=== PATIENT | male | born 1950 | race Asian ===

== ENCOUNTER 2020-08-17 07:45 | Outpatient (REF) | payer BC, SELFPAY ==
[2020-08-17 08:24] LABS: MANUAL DIFF FLAG NO
[2020-08-17 08:37] LABS: Estimated Average Glucose 237 mg/dL; Hemoglobin A1c % 9.9 %
[2020-08-17 08:51] LABS: Alanine Aminotransferase 31 U/L (0-40); Albumin Level 4.3 g/dL (3.5-5.0); Alkaline Phosphatase 76 U/L (39-117); Anion Gap 14 (12-20); Aspartate Amino Transferase 20 U/L (5-37); Bilirubin Total 0.7 mg/dL (0.0-1.0); Blood Urea Nitrogen 17 mg/dL (9-16); Calcium 8.9 mg/dL (8.4-10.2); Carbon Dioxide 25 mmol/L (22-29); Chloride 103 mmol/L (96-108); Cholesterol 116 mg/dL; Estimated Glomerular Filt Rate > 60; Glucose Fasting 225 mg/dL (60-99); HDL Cholesterol 37 mg/dL; LDL Cholesterol Calculated 67 mg/dl; Potassium 4.5 mmol/L (3.3-5.1); Sodium 137 mmol/L (135-145); Total Protein 7.4 g/dL (6.5-8.0); Triglycerides 62 mg/dL
[2020-08-17 09:01] LABS: Microalbum/Creatinine Ratio Ur 36.9 ug/mg cr
[2020-08-17 09:02] LABS: Basophils Percent Auto 0.4 % (0-2); Eosinophils Absolute Auto 0.2 X10*3/uL (0.0-0.4); Eosinophils Percent Auto 2.6 % (0-4); Hemoglobin 13.3 g/dl (14.0-18.0); Imm Gran Abs Auto 0.02 X10*3/uL (0.00-0.03); Imm Gran Pct Auto 0.3 % (0.0-0.4); Lymphocytes Percent Auto 29.1 % (20-40); Mean Corpuscular HGB Conc 31.7 g/dl (31.0-36.0); Mean Corpuscular Hemoglobin 26.9 pg (27.0-33.0); Mean Corpuscular Volume 84.8 fL (80-98); Mean Platelet Volume 10.3 fL (9.4-12.4); Monocytes Absolute Auto 0.8 X10*3/uL (0.1-1.2); Monocytes Percent Auto 11.3 % (2-11); Neutrophils Absolute Auto 3.9 X10*3/uL (2.0-8.3); Neutrophils Percent Auto 56.3 % (45-73); Platelet Count 240 X10*3/uL (160-400); Red Blood Count 4.95 X10*6/uL (4.60-5.80); Red Cell Distribution Width 13.2 % (11.0-16.0); White Blood Count 6.9 X10*3/uL (4.8-10.8)
== END 2020-08-17 07:46 | disposition home or self-care (01) ==
LOC: HO.LAB 07:45
PROVIDERS: PCP Internal Medicine; Visit Provider Internal Medicine
DX: Z00.00 Encounter for general adult medical examination without abnormal findings (principal); E11.9 Type 2 diabetes mellitus without complications
CPT/HCPCS: 36415; 80053; 80061; 82043; 83036; 85025

== ENCOUNTER → 2020-10-21 12:51 | Outpatient (BNVA) | payer BC, SELFPAY | PROVIDERS: PCP Internal Medicine; Visit Provider Nurse Practitioner Gerontology | DX: E11.65 Type 2 diabetes mellitus with hyperglycemia (principal); E11.42 Type 2 diabetes mellitus with diabetic polyneuropathy; E78.00 Pure hypercholesterolemia, unspecified | CPT/HCPCS: 82947 ==

== ENCOUNTER → 2021-02-26 13:16 | Outpatient (BNVA) | payer BC, SELFPAY | PROVIDERS: PCP Internal Medicine; Visit Provider Nurse Practitioner Gerontology | DX: E11.42 Type 2 diabetes mellitus with diabetic polyneuropathy (principal); E78.00 Pure hypercholesterolemia, unspecified | CPT/HCPCS: 82947; 83036 ==

== ENCOUNTER → 2021-03-26 12:24 | Outpatient (BNVA) | payer BC, SELFPAY | PROVIDERS: PCP Internal Medicine; Visit Provider Dietitian, Registered | DX: E11.42 Type 2 diabetes mellitus with diabetic polyneuropathy (principal) | CPT/HCPCS: 97802 ==

== ENCOUNTER 2021-06-07 07:23 | Outpatient (REF) | payer BC, SELFPAY ==
[2021-06-07 08:11] LABS: Estimated Average Glucose 146 mg/dL; Hemoglobin A1c % 6.7 %
[2021-06-07 08:27] LABS: Alanine Aminotransferase 29 U/L (0-40); Albumin Level 4.5 g/dL (3.5-5.0); Alkaline Phosphatase 64 U/L (39-117); Anion Gap 15 (12-20); Aspartate Amino Transferase 20 U/L (5-37); Bilirubin Total 0.7 mg/dL (0.0-1.0); Blood Urea Nitrogen 20 mg/dL (9-16); Calcium 9.6 mg/dL (8.4-10.2); Carbon Dioxide 26 mmol/L (22-29); Chloride 103 mmol/L (96-108); Cholesterol 162 mg/dL; Estimated Glomerular Filt Rate > 60; Glucose Fasting 162 mg/dL (60-99); HDL Cholesterol 39 mg/dL; LDL Cholesterol Calculated 107 mg/dl; Potassium 4.8 mmol/L (3.3-5.1); Sodium 139 mmol/L (135-145); Total Protein 7.8 g/dL (6.5-8.0); Triglycerides 82 mg/dL
[2021-06-07 08:32] LABS: Creatinine Urine 42.16 mg/dL; Microalbum/Creatinine Ratio Ur 61.6 ug/mg cr
[2021-06-07 08:32] LABS: Free T4 (Free Thyroxine) 1.16 ng/dL (0.71-1.85); Thyroid Stimulating Hormone 2.45 uIU/mL (0.32-4.0)
[2021-06-08 09:17] LABS: LDL Cholesterol Direct 100 mg/dL (<100)
== END 2021-06-07 07:24 | disposition home or self-care (01) ==
LOC: HO.LAB 07:23
PROVIDERS: PCP Internal Medicine; Visit Provider Nurse Practitioner Gerontology
DX: E11.42 Type 2 diabetes mellitus with diabetic polyneuropathy (principal)
CPT/HCPCS: 36415; 80053; 80061; 82043; 83036; 83721; 84439; 84443

== ENCOUNTER → 2021-06-13 13:30 | Outpatient (BNVA) | payer BC, SELFPAY | PROVIDERS: PCP Internal Medicine; Visit Provider Nurse Practitioner Gerontology | DX: E11.42 Type 2 diabetes mellitus with diabetic polyneuropathy (principal); E78.00 Pure hypercholesterolemia, unspecified | CPT/HCPCS: 82947 ==

== ENCOUNTER 2021-10-25 07:05 | Outpatient (REF) | payer BC, SELFPAY ==
[2021-10-25 08:21] LABS: Estimated Average Glucose 154 mg/dL
[2021-10-25 08:23] LABS: Cholesterol 213 mg/dL; Glucose Fasting 146 mg/dL (60-99); HDL Cholesterol 39 mg/dL; LDL Cholesterol Calculated 156 mg/dl; Triglycerides 93 mg/dL
== END 2021-10-25 07:06 | disposition home or self-care (01) ==
LOC: HO.LAB 07:05
PROVIDERS: PCP Internal Medicine; Visit Provider Internal Medicine
DX: E78.5 Hyperlipidemia, unspecified (principal); E11.65 Type 2 diabetes mellitus with hyperglycemia
CPT/HCPCS: 36415; 80061; 82947; 83036

== ENCOUNTER 2022-02-20 08:32 | Outpatient (REF) | payer BC, SELFPAY ==
[2022-02-20 08:50] LABS: MANUAL DIFF FLAG NO
[2022-02-20 08:57] LABS: Basophils Absolute Auto 0.1 X10*3/uL (0.0-0.2); Basophils Percent Auto 0.6 % (0-2); Eosinophils Absolute Auto 0.3 X10*3/uL (0.0-0.4); Eosinophils Percent Auto 3.3 % (0-4); Hematocrit 44.2 % (42.0-52.0); Hemoglobin 14.1 g/dl (14.0-18.0); Imm Gran Abs Auto 0.02 X10*3/uL (0.00-0.03); Imm Gran Pct Auto 0.3 % (0.0-0.4); Lymphocytes Absolute Auto 2.3 X10*3/uL (1.2-4.9); Lymphocytes Percent Auto 29.3 % (20-40); Mean Corpuscular HGB Conc 31.9 g/dl (31.0-36.0); Mean Corpuscular Hemoglobin 26.8 pg (27.0-33.0); Mean Corpuscular Volume 83.9 fL (80.0-98.0); Mean Platelet Volume 9.5 fL (9.4-12.4); Monocytes Absolute Auto 0.8 X10*3/uL (0.1-1.2); Monocytes Percent Auto 10.6 % (2-11); Neutrophils Absolute Auto 4.4 x10*3/uL (2.0-8.3); Neutrophils Percent Auto 55.9 % (45-73); Platelet Count 260 X10*3/uL (160-400); Red Blood Count 5.27 X10*6/uL (4.60-5.80); Red Cell Distribution Width 13.7 % (11.0-16.0); White Blood Count 7.9 X10*3/uL (4.8-10.8)
[2022-02-20 09:21] LABS: Alanine Aminotransferase 18 U/L (0-40); Alkaline Phosphatase 55 U/L (39-117); Anion Gap 17 (12-20); Aspartate Amino Transferase 17 U/L (5-37); Bilirubin Total 0.7 mg/dL (0.0-1.0); Blood Urea Nitrogen 26 mg/dL (9-16); Calcium 9.7 mg/dL (8.4-10.2); Carbon Dioxide 25 mmol/L (22-29); Chloride 102 mmol/L (96-108); Cholesterol 240 mg/dL; Estimated Glomerular Filt Rate > 60; Glucose Random 141 mg/dL (60-115); HDL Cholesterol 41 mg/dL; LDL Cholesterol Calculated 171 mg/dl; Potassium 4.8 mmol/L (3.3-5.1); Sodium 139 mmol/L (135-145); Total Protein 7.9 g/dL (6.5-8.0); Triglycerides 142 mg/dL
[2022-02-20 09:31] LABS: TSH reflex Free T4 1.34 uIU/mL (0.32-4.0)
[2022-02-20 09:50] LABS: Microalbum/Creatinine Ratio Ur 51.5 ug/mg cr
[2022-02-20 11:15] LABS: Albumin Level 4.6 g/dL (3.5-5.0)
== END 2022-02-20 08:33 | disposition home or self-care (01) ==
LOC: HO.LAB 08:32
PROVIDERS: PCP Internal Medicine; Visit Provider Internal Medicine Endocrinology, Diabetes & Metabolism
DX: Z13.29 Encounter for screening for other suspected endocrine disorder (principal); E78.5 Hyperlipidemia, unspecified
CPT/HCPCS: 36415; 80053; 80061; 82043; 84443; 85025

== ENCOUNTER 2022-05-23 07:14 | Outpatient (REF) | payer BC, SELFPAY ==
[2022-05-23 08:08] LABS: Estimated Average Glucose 140 mg/dL; Hemoglobin A1c % 6.5 %
[2022-05-23 08:28] LABS: Cholesterol 142 mg/dL; Glucose Fasting 161 mg/dL (60-99); HDL Cholesterol 41 mg/dL; LDL Cholesterol Calculated 89 mg/dl; Triglycerides 60 mg/dL
== END 2022-05-23 07:15 | disposition home or self-care (01) ==
LOC: HO.LAB 07:14
PROVIDERS: PCP Internal Medicine; Visit Provider Internal Medicine Endocrinology, Diabetes & Metabolism
DX: E78.5 Hyperlipidemia, unspecified (principal); E11.65 Type 2 diabetes mellitus with hyperglycemia
CPT/HCPCS: 36415; 80061; 82947; 83036

== ENCOUNTER 2023-03-23 12:50 | Outpatient (AMB) | payer MEDICARE, SELFPAY ==
[2023-03-23 12:52] VITALS: BP 136/68; PULSE 84; O2SAT 99; BMI 20.7
--- NOTE | 2023-03-23 12:52 | A.OFFPC_ITS ---
Vital Signs 03/23/23 12:52 Height 5 ft 2 in Weight 113 lb BMI 20.7 BP 136/68 Blood Pressure Location Lt brachial Position Sitting Pulse 84 Pulse Source Pulse Oximeter Pulse Oximetry (%) 99 Oxygen Delivery Method Room Air Intake Visit Reasons: Annual Exam Facilities Engineer Required: No Greenhouse Instructor: Not Required per policy Accompanied by: Self / Same As Patient Allergies No Known Allergies Allergy (Verified 03/23/23 12:53) Medication List - Last Reconciled 03/23/23 by Norm Gallego MD blood sugar diagnostic (Preedo Verio test strips) 2x/day blood-glucose meter (Preedo Verio Flex Start kit) As directed empagliflozin (Jardiance) 10 mg PO DAILY glipizide 2.5 mg (1/2 x 5 mg) PO DAILY lancets (Preedo Delica Lancets) As directed twice a day metformin 1,000 mg PO BID rosuvastatin 40 mg PO QPM sitagliptin phosphate (Januvia) 100 mg PO DAILY Tobacco use date assessed: 03/23/23 Fall risk assessment: No Falls in past year Last assessed Fall Risk: 03/23/23 Dental Screening Dental Screen Date: 03/23/23 Did you have a dental visit in the last 12 months?: Yes Did you have a dental problem in the last 6 months where you did not have access to dental care?: No Was dental information given to patient?: Patient has dentist HPI Annual Exam HPI Details DM and sees endo [facility] Medical History Type 2 diabetes mellitus with diabetic polyneuropathy Hyperlipidemia Diabetes mellitus Surgical History History of root canal procedure Family History Father No problems noted. Mother No problems noted. Brother Diabetes Social History Household Members: Spouse Housing: House Alcohol intake: current Alcohol intake frequency: a few times a month Alcohol type: beer Patient Tobacco Use Status: Never used Tobacco e-Cigarette/Vaping Use: Never Used Second Hand Smoke Exposure: No service: No Current occupational status: employed and retired Cognitive needs: No Hearing needs: No Vision needs: Yes Questionnaire PHQ-9 Over the last 2 weeks, how often have you been bothered by any of the following problems? 1. Little interest or pleasure in doing things: not at all 2. Feeling down, depressed, or hopeless: not at all 3. Trouble falling or staying asleep, or sleeping too much: not at all 4. Feeling tired or having little energy: not at all 5. Poor appetite or overeating: not at all 6. Feeling bad about yourself - or that you are a failure or have let yourself or your family down: not at all 7. Trouble concentrating on things, such as reading the newspaper or watching television: not at all 8. Moving or speaking so slowly that other people could have noticed. Or the opposite - being so fidgety or restless that you have been moving around a lot more than usual: not at all 9. Thoughts that you would be better off or of hurting yourself in some way: not at all Total score: 0 Depression Screening Interpretation: Negative Depression Screening Done: Yes 24006 - PHQ-9 Billing: Yes Source: Developed by Drs. Joshua Rubio, Gina Hamilton, Ras Grimaldo and colleagues, with an educational cornelius from [employer]. Thrive Questionnaire Date Thrive assessed: 03/23/23 I am a: Patient What is your living situation today?: I have a steady place to live Within the past 12 months, did the food you bought not last and you didn't have the money to get more?: Never true Within the past 12 months, did you worry whether your food would run out before you got money to buy more?: Never true Do you have trouble paying for medicines?: No Do you have trouble getting transportation to medical appointments?: No Do you have trouble paying your heating and electricity bill?: No Do you have trouble taking care of your child, family member or friend?: No Do you have trouble with day-to-day activities such as bathing, preparing meals, shopping, managing finances, etc.?: No Are you currently unemployed and looking for a job?: No Are you interested in more education?: No Please select the resources that you would like help with: None AUDIT C Alcohol Use Questionnaire (AUDIT-C) 1. How often do you have a drink containing alcohol?: 2-4 times a month 2. How many drinks containing alcohol do you have on a typical day when you are drinking?: 1 or 2 3. How often do you have six or more drinks on one occasion?: Never Total Score: 2 Score Reviewed/Action Taken: Yes ELVIA-7 AMB Questionnaire ELVIA-7 Date ELVIA - 7 assessed: 03/23/23 Feeling nervous, anxious, or on edge: 0 = Not at all Not being able to stop or control worryin = Not at all Worrying too much about different things: 0 = Not at all Trouble relaxin = Not at all Being so restless that it is hard to sit still: 0 = Not at all Becoming easily annoyed or irritable: 0 = Not at all Feeling afraid as if something awful might happen: 0 = Not at all Total ELVIA-7 score (0-4 normal; 5-9 mild; 10-14 moderate; 15-21 severe): 0 Source: Developed by Drs. Joshua Rubio, Gina Hamilton, Ras Grimaldo and colleagues, with an educational cornelius from [employer]. ELVIA-7 Assessment Billing ELVIA-7 Assessment Tool: ELVIA-7 Assessment 88332 Review of Systems Const Denies chills, Denies fatigue, Denies headache(s) and Denies weight loss Eyes Denies change in vision, Denies diplopia and Denies eye pain ENT Denies vertigo, Denies dizziness, Denies headache(s) and Denies nasal discharge Card Denies chest pain, Denies rapid heart rate and Denies dyspnea on exertion Resp Denies chest congestion, Denies cough, Denies pain with cough and Denies dyspnea on exertion GI Denies abdominal pain, Denies hematochezia and Denies change in bowel habits Musc Denies myalgias, Denies arthralgias and Denies joint swelling Skin/Breast Denies lesions and Denies unusual bruising Neuro Denies vertigo, Denies dizziness, Denies headache(s) and Denies focal weakness Endo Denies fatigue Physical exam (Primary Care) Vital Signs: Last Vital Signs Pulse 84 03/23/23 12:52 BP 136/68 03/23/23 12:52 Pulse Ox 99 03/23/23 12:52 Oxygen Delivery Method Room Air 03/23/23 12:52 BMI result Body Mass Index 20.7 Tobacco/Smoking Status: Tobacco use Status Tobacco use date assessed 03/23/23 03/23/23 12:54 Patient Tobacco Use Status Never used Tobacco 03/23/23 12:54 e-Cigarette/Vaping Use Never Used 03/23/23 12:54 PHQ-9: PHQ-9 Score PHQ-9: Total score 0 03/23/23 13:06 Depression Screening Interpretation: Negative Thrive Assessment: Date of Thrive Assessment Date Thrive assessed 03/23/23 03/23/23 12:54 Const General: cooperative, healthy appearing and no acute distress Orientation/consciousness: oriented to person, oriented to place and oriented to time HENMT Head: Yes normal to inspection, Yes normocephalic and Yes atraumatic Mouth: Normal oral and palatal mucosa present and tongue normal Throat: Yes posterior oropharynx normal and Yes uvula midline Eyes General: appearance normal, both eyes and all related structures Neck Neck: Yes normal visual inspection, Yes full ROM and Yes no lymphadenopathy Thyroid: Thyroid normal Carotids: normal carotid upstroke Chest Chest palpation & inspection: normal inspection of the chest Resp Effort & Inspection: normal respiratory effort and able to speak in complete sentences Auscultation: clear to auscultation bilaterally Cardio Jugular venous distension: no JVD Palpation: normal PMI Rate: regular rate Rhythm: regular rhythm Heart sounds: S1 normal heart sound present and S2 normal heart sound present GI Inspection: Yes normal to inspection Palpation (GI): Soft to palpation and No hepatosplenomegaly present Auscultation: normal bowel sounds General: Yes no CVA tenderness Back/Spine/Pelvis Back: no CVA tenderness Skin General skin exam: no rashes or lesions noted Neuro General: oriented to person, oriented to place and oriented to time Extrem General: Yes normal to inspection and Yes full ROM Results AMB Hemoglobin A1c AMB Hemoglobin A1c 7.1 % Last Edit by FÁTIMA Michael on 03/23/23 13:07 Results Reviewed Results Reviewed: Laboratory Last Values Hgb A1c (Clinic) 7.1 % (4.0-6.0) H 03/23/23 12:55 Assessment and Plan Assessment & Plan (1) Diabetes mellitus: Code(s): E11.9 - Type 2 diabetes mellitus without complications Qualifiers: Diabetes mellitus complication status: with hypoglycemia Diabetes mellitus skilled nursing insulin use: without extermination supervisor use Diabetes mellitus type: type 2 Plan: as per endo (2) Physical exam: Code(s): Z00.00 - Encounter for general adult medical examination without abnormal fin dings Plan: do labs Orders: Orders AMB Hemoglobin A1c Today E11.9 - Type 2 diabetes mellitus without complications Thyroid Stimulating Hormone Today E03.9 - Hypothyroidism, unspecified Complete Blood Count Auto Diff Today D64.9 - Anemia, unspecified Lipid Panel Today E78.5 - Hyperlipidemia, unspecified Microalbumin, Random (w Creat) Today E11.69 - Type 2 diabetes mellitus with other specified complication, E66.01 - Morbid (severe) obesity due to excess calories Comprehensive [place]. Panel Fast Today N28.9 - Disorder of kidney and ureter, unspecified Hemoglobin A1c Today R73.9 - Hyperglycemia, unspecified Coding Level of Care Code Est Pt Prev Care >65y(94062) Diagnoses Diabetes mellitus E11.9 Diabetes mellitus complication status: with hypoglycemia Diabetes mellitus skilled nursing insulin use: without extermination supervisor use Diabetes mellitus type: type 2 Physical exam Z00.00 Additional Codes ELVIA-7 Assessment Billing - ELVIA-7 Assessment Tool: ELVIA-7 Assessment 43732 ([id number])
== END 2023-03-23 13:14 | disposition home or self-care (01) ==
PROVIDERS: Visit Provider Internal Medicine
DX: E11.9 Type 2 diabetes mellitus without complications (principal); Z00.00 Encounter for general adult medical examination without abnormal findings
CPT/HCPCS: 83036; 99397

== ENCOUNTER 2023-03-27 07:12 | Outpatient (REF) | payer MEDICARE, SELFPAY ==
[2023-03-27 07:30] LABS: MANUAL DIFF FLAG NO
[2023-03-27 09:15] LABS: Basophils Percent Auto 0.5 % (0-2); Eosinophils Absolute Auto 0.4 X10*3/uL (0.0-0.4); Eosinophils Percent Auto 4.3 % (0-4); Hematocrit 44.6 % (42.0-52.0); Hemoglobin 14.2 g/dl (14.0-18.0); Imm Gran Abs Auto 0.03 X10*3/uL (0.00-0.03); Imm Gran Pct Auto 0.3 % (0.0-0.4); Lymphocytes Absolute Auto 2.8 X10*3/uL (1.2-4.9); Mean Corpuscular HGB Conc 31.8 g/dl (31.0-36.0); Mean Corpuscular Hemoglobin 27.3 pg (27.0-33.0); Mean Corpuscular Volume 85.8 fL (80.0-98.0); Mean Platelet Volume 10.8 fL (9.4-12.4); Monocytes Percent Auto 11.7 % (2-11); Neutrophils Absolute Auto 4.5 x10*3/uL (2.0-8.3); Neutrophils Percent Auto 51.2 % (45-73); Platelet Count 259 X10*3/uL (160-400); Red Cell Distribution Width 14.1 % (11.0-16.0); White Blood Count 8.8 X10*3/uL (4.8-10.8)
[2023-03-27 09:22] LABS: Estimated Average Glucose 143 mg/dL; Hemoglobin A1c % 6.6 % (<6.0)
[2023-03-27 09:27] LABS: Appearance Urine Clear; Color Urine Yellow; Glucose Urine UA >=1000 mg/dL (Negative); Leukocyte Esterase Urine Trace (Negative); Nitrite Urine Negative (Negative); Specific Gravity - Urine >= 1.030 (1.005-1.025); UMIC TRIGGER UA YES; Urine Blood Negative (Negative); Urine Ketones 15 mg/dL (Negative); Urine Protein Negative (Neg-Trace)
[2023-03-27 09:33] LABS: Bacteria Urine None Seen (None Seen); Hyaline Casts Urine 0-2 /LPF (0-2); RBC Urine 0-2 /HPF (0-2)
[2023-03-27 09:39] LABS: Creatinine Urine 52.84 mg/dL; Microalbum/Creatinine Ratio Ur 28.3 ug/mg cr (<30)
[2023-03-27 09:50] LABS: Alanine Aminotransferase 19 U/L (0-40); Albumin Level 4.6 g/dL (3.5-5.0); Alkaline Phosphatase 50 U/L (39-117); Anion Gap 16 (12-20); Aspartate Amino Transferase 19 U/L (5-37); Bilirubin Total 0.6 mg/dL (0.0-1.0); Blood Urea Nitrogen 22 mg/dL (9-16); Calcium 9.6 mg/dL (8.4-10.2); Carbon Dioxide 25 mmol/L (22-29); Chloride 101 mmol/L (96-108); Cholesterol 160 mg/dL (<200); Estimated Glomerular Filt Rate > 60; Glucose Random 140 mg/dL (60-115); HDL Cholesterol 40 mg/dL (>40); LDL Cholesterol Calculated 101 mg/dL (<100); Potassium 3.8 mmol/L (3.3-5.1); Sodium 138 mmol/L (135-145); Triglycerides 95 mg/dL (<150)
[2023-03-27 10:08] LABS: Thyroid Stimulating Hormone 3.23 uIU/mL (0.32-4.0)
== END 2023-03-27 07:13 | disposition home or self-care (01) ==
LOC: HO.LAB 07:12
PROVIDERS: PCP Internal Medicine; Referring Provider Internal Medicine; Visit Provider Internal Medicine Endocrinology, Diabetes & Metabolism
DX: E11.9 Type 2 diabetes mellitus without complications (principal); E78.5 Hyperlipidemia, unspecified
CPT/HCPCS: 36415; 80053; 80061; 81001; 82043; 82570; 83036; 84443; 85025

== ENCOUNTER 2024-03-24 13:03 | Outpatient (AMB) | payer MEDICARE, SELFPAY ==
--- NOTE | 2024-03-24 13:04 | A.OFFPC_ITS ---
Vital Signs 03/24/24 13:05 Height 5 ft 2 in Weight 111 lb 6 oz BMI 20.4 BP 122/60 Blood Pressure Location Lt brachial Position Sitting Pulse 80 Pulse Source Pulse Oximeter Pulse Oximetry (%) 99 Oxygen Delivery Method Room Air Intake Visit Reasons: PHYSICAL Merchandise For Resale Purchasing Agent Required: No Accompanied by: Self / Same As Patient Allergies No Known Allergies Allergy (Verified 03/24/24 13:09) Medication List - Last Reconciled 03/27/24 by Norm Gallego MD blood sugar diagnostic ([employer] IO Verio test strips) 2x/day blood-glucose meter ([employer] IO Verio Flex Start kit) As directed empagliflozin (Jardiance) 10 mg PO DAILY glipizide 2.5 mg (1/2 x 5 mg) PO DAILY lancets ([employer] Delica Lancets) As directed twice a day metformin 1,000 mg PO BID rosuvastatin 40 mg PO QPM sitagliptin phosphate (Januvia) 100 mg PO DAILY Tobacco use date assessed: 03/24/24 Fall risk assessment: No Falls in past year Last assessed Fall Risk: 03/24/24 Dental Screening Dental Screen Date: 03/24/24 Did you have a dental visit in the last 12 months?: Yes Did you have a dental problem in the last 6 months where you did not have access to dental care?: No Was dental information given to patient?: Patient has dentist HPI PHYSICAL HPI0 Details DM in good control; sees endo PFSH Medical History Type 2 diabetes mellitus with diabetic polyneuropathy Hyperlipidemia Diabetes mellitus Surgical History History of root canal procedure Family History Father No problems noted. Mother No problems noted. Brother Diabetes Social History Household Members: Spouse Housing: House Alcohol intake: current Alcohol intake frequency: a few times a month Alcohol type: beer Patient Tobacco Use Status: Never used Tobacco e-Cigarette/Vaping Use: Never Used Second Hand Smoke Exposure: No service: No Current occupational status: employed and retired Cognitive needs: No Hearing needs: No Vision needs: Yes Questionnaire PHQ-9 Over the last 2 weeks, how often have you been bothered by any of the following problems? 1. Little interest or pleasure in doing things: not at all 2. Feeling down, depressed, or hopeless: not at all 3. Trouble falling or staying asleep, or sleeping too much: not at all 4. Feeling tired or having little energy: not at all 5. Poor appetite or overeating: not at all 6. Feeling bad about yourself - or that you are a failure or have let yourself or your family down: not at all 7. Trouble concentrating on things, such as reading the newspaper or watching television: not at all 8. Moving or speaking so slowly that other people could have noticed. Or the opposite - being so fidgety or restless that you have been moving around a lot more than usual: not at all 9. Thoughts that you would be better off or of hurting yourself in some way: not at all Total score: 0 Depression Screening Interpretation: Negative Depression Screening Done: Yes 39256 - PHQ-9 Billing: Patient declined-do not bill Source: Developed by Drs. Joshua Rubio, Gina Hamilton, Ras Grimaldo and colleagues, with an educational cornelius from [employer]. Thrive Questionnaire Date Thrive assessed: 03/24/24 I am a: Patient What is your living situation today?: I have a steady place to live Within the past 12 months, did the food you bought not last and you didn't have the money to get more?: Never true Within the past 12 months, did you worry whether your food would run out before you got money to buy more?: Never true Do you have trouble paying for medicines?: No Do you have trouble getting transportation to medical appointments?: No Do you have trouble paying your heating and electricity bill?: No Do you have trouble taking care of your child, family member or friend?: No Do you have trouble with day-to-day activities such as bathing, preparing meals, shopping, managing finances, etc.?: No Are you currently unemployed and looking for a job?: No Are you interested in more education?: No Please select the resources that you would like help with: None Currently or been in a relationship where the following occur: I choose not to answer THRIVE Score: 0 AUDIT C Alcohol Use Questionnaire (AUDIT-C) 1. How often do you have a drink containing alcohol?: Monthly or less 2. How many drinks containing alcohol do you have on a typical day when you are drinking?: 1 or 2 3. How often do you have six or more drinks on one occasion?: Never Total Score: 1 ELVIA-7 AMB Questionnaire ELVIA-7 Date ELVIA - 7 assessed: 03/24/24 Feeling nervous, anxious, or on edge: 0 = Not at all Not being able to stop or control worryin = Not at all Worrying too much about different things: 0 = Not at all Trouble relaxin = Not at all Being so restless that it is hard to sit still: 0 = Not at all Becoming easily annoyed or irritable: 0 = Not at all Feeling afraid as if something awful might happen: 0 = Not at all Total ELVIA-7 score (0-4 normal; 5-9 mild; 10-14 moderate; 15-21 severe): 0 Source: Developed by Drs. Joshua Rubio, Gina Hamilton, Ras Grimaldo and colleagues, with an educational cornelius from [employer]. ELVIA-7 Assessment Billing ELVIA-7 Assessment Tool: ELVIA-7 Assessment 40405 Review of Systems Const Denies chills, Denies fatigue, Denies headache(s) and Denies weight loss Eyes Denies change in vision, Denies diplopia and Denies eye pain ENT Denies vertigo, Denies dizziness, Denies headache(s) and Denies nasal discharge Card Denies chest pain, Denies rapid heart rate and Denies dyspnea on exertion Resp Denies chest congestion, Denies cough, Denies pain with cough and Denies dyspnea on exertion GI Denies abdominal pain, Denies hematochezia and Denies change in bowel habits Musc Denies myalgias, Denies arthralgias and Denies joint swelling Skin/Breast Denies lesions and Denies unusual bruising Neuro Denies vertigo, Denies dizziness, Denies headache(s) and Denies focal weakness Endo Denies fatigue Physical exam (Primary Care) Vital Signs: Last Vital Signs Pulse 80 03/24/24 13:05 BP 122/60 03/24/24 13:05 Pulse Ox 99 03/24/24 13:05 Oxygen Delivery Method Room Air 03/24/24 13:05 BMI result Body Mass Index 20.4 Tobacco/Smoking Status: Tobacco use Status Tobacco use date assessed 03/24/24 03/24/24 13:13 Patient Tobacco Use Status Never used Tobacco 03/24/24 13:05 e-Cigarette/Vaping Use Never Used 03/24/24 13:05 PHQ-9: PHQ-9 Score PHQ-9: Total score 0 03/24/24 13:13 Depression Screening Interpretation: Negative Thrive Assessment: Date of Thrive Assessment Date Thrive assessed 03/24/24 03/24/24 13:13 Currently or been in a relationship where the following occur: I choose not to answer Const General: cooperative, healthy appearing and no acute distress Orientation/consciousness: oriented to person, oriented to place and oriented to time HENMT Head: Yes normal to inspection, Yes normocephalic and Yes atraumatic Mouth: Normal oral and palatal mucosa present and tongue normal Throat: Yes posterior oropharynx normal and Yes uvula midline Eyes General: appearance normal, both eyes and all related structures Neck Neck: Yes normal visual inspection, Yes full ROM and Yes no lymphadenopathy Thyroid: Thyroid normal Carotids: normal carotid upstroke Chest Chest palpation & inspection: normal inspection of the chest Resp Effort & Inspection: normal respiratory effort and able to speak in complete sentences Auscultation: clear to auscultation bilaterally Cardio Jugular venous distension: no JVD Palpation: normal PMI Rate: regular rate Rhythm: regular rhythm Heart sounds: S1 normal heart sound present and S2 normal heart sound present GI Inspection: Yes normal to inspection Palpation (GI): Soft to palpation and No hepatosplenomegaly present Auscultation: normal bowel sounds General: Yes no CVA tenderness Back/Spine/Pelvis Back: no CVA tenderness Skin General skin exam: no rashes or lesions noted Neuro General: oriented to person, oriented to place and oriented to time Extrem General: Yes normal to inspection and Yes full ROM Coding Level of Care Code Est Pt Prev Care >65y(15306) Diagnoses Physical exam Z00.00 Diabetes mellitus E11.9 Diabetes mellitus type: type 2 Diabetes mellitus termite treater helper insulin use: without prison use Diabetes mellitus complication status: with hypoglycemia Additional Codes ELVIA-7 Assessment Billing - ELVIA-7 Assessment Tool: ELVIA-7 Assessment 86832 ([id number]) Assessment & Plan Assessment & Plan (1) Physical exam: Code(s): Z00.00 - Encounter for general adult medical examination without abnormal findings Category: Medical Plan: stable; do labs (2) Diabetes mellitus: Code(s): E11.9 - Type 2 diabetes mellitus without complications Category: Medical Qualifiers: Diabetes mellitus type: type 2 Diabetes mellitus termite treater helper insulin use: without prison use Diabetes mellitus complication status: with hypoglycemia Plan: stable; per endo Orders: Orders Lipid Panel 03/24/24 Z13.220 - Encounter for screening for lipoid disorders Complete Blood Count Auto Diff 03/24/24 Z13.0 - Encounter for screening for diseases of the blood and blood-forming organs and certain disorders involving the immune mechanism Comprehensive [place]. Panel Fast 03/24/24 Z13.9 - Encounter for screening, unspecified AMB Hemoglobin A1c 03/24/24 Z13.9 - Encounter for screening, unspecified Thyroid Stimulating Hormone 03/24/24 Z13.29 - Encounter for screening for other suspected endocrine disorder
[2024-03-24 13:05] VITALS: BP 122/60; PULSE 80; O2SAT 99; BMI 20.4
--- OUTSIDE RECORDS SUMMARY | 2024-03-24 13:05 | XMS_ITS ---
Author Organization [facility] Address [address] [place] [id number] Care Team Providers Care Field Marketing Director Name Role Phone Norm Gallego MD Primary Care Provider Unavaila Joshua Juárez Unavailable [phone] REASON FOR VISIT Insurance? Encounters Encounter Location Date Provider Diagnosis [facility] [address] [place] [id number] 11/12/2022 Joshua Haney PLAN OF TREATMENT No Information
--- OUTSIDE RECORDS SUMMARY | 2024-03-24 13:05 | XMS_ITS ---
Author Organization [facility] Address [address] [place] [id number] Care Team Providers Care Health And Safety Advisor Name Role Phone Norm Gallego MD Primary Care Provider Unavaila Joshua Juárez Unavailable [phone] REASON FOR VISIT Patient presents today for a colon screening Encounters Encounter Location Date Provider Diagnosis [facility] [address] [place] [id number] 12/22/2022 Joshua Haney PLAN OF TREATMENT No Information
--- OUTSIDE RECORDS SUMMARY | 2024-03-24 13:06 | XMS_ITS | Patient Health Record ---
Author Organization [facility] Address [address] [place] [address] Care Team Providers Care Nurse School Name Role Phone Lashonda SANTANA, Norm Primary Care Provider Joshua Mariee Unavailable [phone] REASON FOR REFERRAL No Information SOCIAL HISTORY Sex Assigned At : Social History Observation Description Sex Assigned At Unknown PLAN OF TREATMENT No Information Insurance Providers Payer Name Payer Address Payer Phone Subscriber Number Group Number Insured Name Patient Relationship to Insured Coverage Start Date Coverage End Date MEDICARE OF [facility] [address] [place] [id number] DION ACOSTA Self - patient is the insured
== END 2024-03-24 13:18 | disposition home or self-care (01) ==
PROVIDERS: PCP Internal Medicine; Visit Provider Internal Medicine
DX: Z00.00 Encounter for general adult medical examination without abnormal findings (principal); E11.9 Type 2 diabetes mellitus without complications

== ENCOUNTER → 2024-03-24 13:03 | Outpatient (BNVA) | payer MEDICARE, SELFPAY | PROVIDERS: PCP Internal Medicine; Visit Provider Internal Medicine | DX: Z00.00 Encounter for general adult medical examination without abnormal findings (principal); E11.9 Type 2 diabetes mellitus without complications | CPT/HCPCS: 96127; 99397 ==

== ENCOUNTER 2024-04-03 06:49 | Outpatient (REF) | payer MEDICARE, SELFPAY ==
--- OUTSIDE RECORDS SUMMARY | 2024-04-03 06:55 | XMS_ITS | Continuity of Care Document ---
Author Organization [facility] [address] [place] [address] Phone [phone] Care Team Providers Care Thaw Shed Heater Tender Name Role Phone Norm Gallego Care Team Information Channel Cementer Insole Machine + [phone] Problems Active Problems Provider Date Type 2 diabetes mellitus Eugenio Hammer M.D. Onset: 02/17/2022 Hyperlipidemia Eugenio Hammer M.D. Onset: 04/19/2021 Social History Type Date Description Comments Sex Unknown Tobacco Use Start: Unknown Never Smoked Cigarettes Smoking Status Reviewed: 08/19/22 Never Smoked Cigaret shan ETOH Use Occasionally consumes alcoho l Allergies and adverse reactions Description No Known Drug Allergies Medications Active Medications SIG Qnty Indications Ordering Provider Date [id number] Tablets Take 1 Tablet By Mouth Daily 90tabs Eugenio Hammer M.D. 03/14/2024 Metformin [id number] Tablets Take 1 Tablet By Mouth Twice Daily 180tabs Eugenio Hammer M.D. 03/14/2024 Ouihltc00pm Tablets 1 tab by mouth every evening 90tabs Eugenio Hammer M.D. 02/24/2022 [id number] Tablets Take 1 Tablet By Mouth Every Day 90tabs Eugenio Hammer M.D. 02/24/2022 Onetouch VerioStrips as Directed To Test Blood Sugar Twice Daily Norm Gallego [id number] Tablets take 1 tablet by mouth every morning 90tabs Eugenio Hammer M.D. Vital Signs Date Vital Result Comment 03/14/2024 1:08pm BP Systolic 120 mmHg BP Diastolic 60 mmHg Heart Rate 72 /min Height 64 inches 5'4 Weight 112.38 lb BMI (Body Mass Index) 19.3 kg/m2 Results Test Acquired Date Facility Test Result H/L [facility] [place] Laboratory test finding 03/14/2024 Inhouse Glucose Fingerstick 123 Hemoglobin A1c 7.3% Laboratory test finding 11/02/2023 Inhouse Glucose Fingerstick 102 Hemoglobin A1c 6.9% Laboratory test finding 07/02/2023 Inhouse Glucose Fingerstick 130 Hemoglobin A1c 7.0% Laboratory test finding 03/26/2023 Inhouse Glucose Fingerstick 119 Hemoglobin A1c 6.9% Laboratory test finding 11/20/2022 Inhouse Glucose Fingerstick 131 Hemoglobin A1c 6.5% Laboratory test finding 08/19/2022 Inhouse Glucose Fingerstick 137 Hemoglobin A1c 6.6% Laboratory test finding 05/20/2022 Inhouse Glucose Fingerstick 207 Hemoglobin A1c 6.8% Laboratory test finding 02/17/2022 [facility] TSH With Reflex To FT4 <pending> Laboratory test finding 02/17/2022 Inhouse Hemoglobin A1c 7.5% Glucose Fingerstick 165 Medical Devices Description No Information Available Encounters Type Date Location Provider Dx Diagnosis Office Visit 03/14/2024 1:00p Main Office Eugenio Hammer M.D. E11.9 Type 2 diabetes mellitus without complications Assessments Date Code Description Provider 03/14/2024 E11.9 Type 2 diabetes mellitus without complications Eugenio Hammer M.D. Plan of Treatment Future Appointment(s):* 06/12/2024 9:15 am - Eugenio Hammer M.D. at Main Office 03/14/2024 - Eugenio Hammer M.D.* E11.9 Type 2 diabetes mellitus without complications * * New Labs:* CMP W/Egfr, Ordered: 03/14/24 * Lipid Panel, Ordered: 03/14/24 * Ua Complete, Ordered: 03/14/24 * Hemoglobin A1c, Ordered: 03/14/24 * PSA Total, Ordered: 03/14/24 * TSH W/Reflex To Free T4, Ordered: 03/14/24 * Urine Microalb+Creat+Ratio RDM, Ordered: 03/14/24 Functional Status Description No Information Available Mental Status Description No Information Available Referrals Description No Information Available
--- OUTSIDE RECORDS SUMMARY | 2024-04-03 06:55 | XMS_ITS ---
Author Organization [facility] Address [address] [place] [phone] Care Team Providers Care Wet Machine Tender Name Role Phone Norm Gallego MD Primary Care Provider Unavaila Joshua Juárez Unavailable [phone] REASON FOR VISIT Patient presents today for a colon screening Encounters Encounter Location Date Provider Diagnosis [facility] [address] [place] [phone] 12/22/2022 Joshua Haney PLAN OF TREATMENT No Information
--- OUTSIDE RECORDS SUMMARY | 2024-04-03 06:55 | XMS_ITS ---
Author Organization [facility] Address [address] [place] [phone] Care Team Providers Care Oracle D[employer] Name Role Phone Norm Gallego MD Primary Care Provider Unavaila Joshua Juárez Unavailable [phone] REASON FOR VISIT Insurance? Encounters Encounter Location Date Provider Diagnosis [facility] [address] [place] [phone] 11/12/2022 Joshua Haney PLAN OF TREATMENT No Information
--- OUTSIDE RECORDS SUMMARY | 2024-04-03 06:55 | XMS_ITS | Patient Health Record ---
Author Organization [facility] Address [address] [place] [address] Care Team Providers Care Experimental Preflight Mechanic Name Role Phone Lashonda SANTANA, Norm Primary Care Provider Joshua Mariee Unavailable [phone] REASON FOR REFERRAL No Information SOCIAL HISTORY Sex Assigned At : Social History Observation Description Sex Assigned At Unknown PLAN OF TREATMENT No Information Insurance Providers Payer Name Payer Address Payer Phone Subscriber Number Group Number Insured Name Patient Relationship to Insured Coverage Start Date Coverage End Date MEDICARE OF [facility] [address] [place] [id number] DION ACOSTA Self - patient is the insured
--- OUTSIDE RECORDS SUMMARY | 2024-04-03 06:55 | XMS_ITS ---
Author Organization [facility] Address [address] [place] [phone] Care Team Providers Care Insurance Representative Name Role Phone Norm Gallego MD Primary Care Provider Unavaila Joshua Juárez Unavailable [phone] REASON FOR VISIT no show Encounters Encounter Location Date Provider Diagnosis [facility] [address] [place] [phone] 12/22/2022 Joshua Haney PLAN OF TREATMENT No Information
[2024-04-03 07:34] LABS: Estimated Average Glucose 148 mg/dL; Hemoglobin A1C 183.2522 umol/L; Hemoglobin A1c % 6.8 % (<6.0)
[2024-04-03 07:39] LABS: Appearance Urine Clear; Color Urine Yellow; Glucose Urine UA >=1000 mg/dL (Negative); Leukocyte Esterase Urine Negative (Negative); Nitrite Urine Negative (Negative); Specific Gravity - Urine >= 1.030 (1.005-1.025); UMIC TRIGGER UA YES; Urine Blood Negative (Negative); Urine Ketones Negative (Negative); Urine Protein Negative (Neg-Trace)
[2024-04-03 07:47] LABS: Bacteria Urine None Seen (None Seen); RBC Urine 0-2 /HPF (0-2); WBC Urine 0-5 /HPF (0-5)
[2024-04-03 08:07] LABS: Alanine Aminotransferase 24 U/L (0-40); Albumin Level 4.6 g/dL (3.5-5.0); Alkaline Phosphatase 59 U/L (39-117); Anion Gap 16 (12-20); Aspartate Amino Transferase 22 U/L (5-37); Bilirubin Total 0.6 mg/dL (0.0-1.0); Blood Urea Nitrogen 19 mg/dL (9-16); Calcium 9.9 mg/dL (8.4-10.2); Carbon Dioxide 23 mmol/L (22-29); Chloride 106 mmol/L (96-108); Cholesterol 170 mg/dL (<200); Estimated Glomerular Filt Rate > 60; Glucose Random 176 mg/dL (60-115); HDL Cholesterol 39 mg/dL (>40); LDL Cholesterol Calculated 106 mg/dL (<100); Potassium 4.7 mmol/L (3.3-5.1); Sodium 140 mmol/L (135-145); Total Protein 8.3 g/dL (6.5-8.0); Triglycerides 129 mg/dL (<150)
[2024-04-03 08:15] LABS: Prostate Specific Antigen 1.09 ng/mL (<0.05-4.0)
[2024-04-03 08:20] LABS: TSH reflex Free T4 3.42 uIU/mL (0.32-4.0)
[2024-04-03 08:24] LABS: Microalbum/Creatinine Ratio Ur 18.1 ug/mg cr (<30)
== END 2024-04-03 06:50 | disposition home or self-care (01) ==
LOC: HO.LAB 06:49
PROVIDERS: PCP Internal Medicine; Referring Provider Internal Medicine; Visit Provider Internal Medicine Endocrinology, Diabetes & Metabolism
DX: E11.9 Type 2 diabetes mellitus without complications (principal); E78.5 Hyperlipidemia, unspecified; Z12.5 Encounter for screening for malignant neoplasm of prostate
CPT/HCPCS: 36415; 80053; 80061; 81001; 82043; 82570; 83036; 84153; 84443

== ENCOUNTER 2024-08-21 14:17 | Outpatient (AMB) | payer BC, SELFPAY ==
--- NOTE | 2024-08-21 14:21 | MHC.PC.OV ---
Vital Signs 08/21/24 14:27 Height 5 ft 2 in Weight 111 lb 2 oz BMI 20.3 BP 130/64 Blood Pressure Location Lt brachial Position Semi Gaston's Pulse 79 Pulse Source Pulse Oximeter Temp 97 F Temp Source Temporal Artery Scan Pulse Oximetry (%) 99 Oxygen Delivery Method Room Air Intake Visit Reasons: OLEGARIO from Dr. Gallego/ follow up Allergies No Known Allergies Allergy (Verified 08/21/24 14:41) Tobacco use date assessed: 03/24/24 Dental Screening Dental Screen Date: 03/24/[address] Gallego/ follow up HPI Details Patient is a 73-year-old male. Patient of Dr. Gallego is presenting for transfer of care. Last seen 03/2024 Past medical history diabetes mellitus, hyperlipidemia, reports diabetic retinopathy, getting injections every 5 weeks in the left eye. Reports that he comes once a year to see Dr. Gallego, but he does sees endocrinology every six-month and has a appointment with them at the end of this month Reports that he does not take his statin consistently due to muscle pain Reports that if he sits down for too long he gets aches in his anterior thighs that goes away after start walking Encouraged magnesium oxide 400 mg at bedtime to help with muscle aches. The patient have never had a colonoscopy. Reports that he is too embarrass to get this done, but would try the Cologuard. Encouraged the patient to it shingles vaccines. Reports that he is up-to-date on most other vaccines, included the pneumo vaccine. He denies chest pain, heart palpitation, shortness of breath or dizziness Denies abdominal pain or change in bowel habits Denies any urinary symptoms. We will send the patient to get new blood work to evaluate his condition, we will add a PSA as well [facility] Medical History Type 2 diabetes mellitus with diabetic polyneuropathy Hyperlipidemia Diabetes mellitus Surgical History History of root canal procedure Family History Father No problems noted. Mother No problems noted. Brother Diabetes Social History Household Members: Spouse Housing: House Alcohol intake: current Alcohol intake frequency: a few times a month Alcohol type: beer Patient Tobacco Use Status: Never used Tobacco e-Cigarette/Vaping Use: Never Used Second Hand Smoke Exposure: No service: No Current occupational status: employed and retired Cognitive needs: No Hearing needs: No Vision needs: Yes Questionnaire PHQ-9 Over the last 2 weeks, how often have you been bothered by any of the following problems? 1. Little interest or pleasure in doing things: not at all 2. Feeling down, depressed, or hopeless: not at all 3. Trouble falling or staying asleep, or sleeping too much: not at all 4. Feeling tired or having little energy: not at all 5. Poor appetite or overeating: not at all 6. Feeling bad about yourself - or that you are a failure or have let yourself or your family down: not at all 7. Trouble concentrating on things, such as reading the newspaper or watching television: not at all 8. Moving or speaking so slowly that other people could have noticed. Or the opposite - being so fidgety or restless that you have been moving around a lot more than usual: not at all 9. Thoughts that you would be better off or of hurting yourself in some way: not at all Total score: 0 Depression Screening Interpretation: Negative Depression Screening Done: Yes 59197 - PHQ-9 Billing: Yes Source: Developed by Drs. Joshua Rubio, Gina Hamilton, Ras Grimaldo and colleagues, with an educational cornelius from [employer]. Thrive Questionnaire Date Thrive assessed: 08/21/24 I am a: Patient What is your living situation today?: I have a steady place to live Within the past 12 months, did the food you bought not last and you didn't have the money to get more?: Never true Within the past 12 months, did you worry whether your food would run out before you got money to buy more?: Never true Do you have trouble paying for medicines?: No Do you have trouble getting transportation to medical appointments?: No Do you have trouble paying your heating and electricity bill?: No Do you have trouble taking care of your child, family member or friend?: No Do you have trouble with day-to-day activities such as bathing, preparing meals, shopping, managing finances, etc.?: No Are you currently unemployed and looking for a job?: No Are you interested in more education?: No Please select the resources that you would like help with: None Currently or been in a relationship where the following occur: I choose not to answer THRIVE Score: 0 AUDIT C Alcohol Use Questionnaire (AUDIT-C) 1. How often do you have a drink containing alcohol?: Monthly or less 2. How many drinks containing alcohol do you have on a typical day when you are drinking?: 1 or 2 3. How often do you have six or more drinks on one occasion?: Never Total Score: 1 ELVIA-7 AMB Questionnaire ELVIA-7 Date ELVIA - 7 assessed: 08/21/24 Feeling nervous, anxious, or on edge: 0 = Not at all Not being able to stop or control worryin = Not at all Worrying too much about different things: 0 = Not at all Trouble relaxin = Not at all Being so restless that it is hard to sit still: 0 = Not at all Becoming easily annoyed or irritable: 0 = Not at all Feeling afraid as if something awful might happen: 0 = Not at all Total ELVIA-7 score (0-4 normal; 5-9 mild; 10-14 moderate; 15-21 severe): 0 Source: Developed by Drs. Joshua Rubio, Gina Hamilton, Ras Grimaldo and colleagues, with an educational cornelius from [employer]. ELVIA-7 Assessment Billing ELVIA-7 Assessment Tool: ELVIA-7 Assessment 99145 Review of Systems Const Denies headache(s) Eyes Denies loss of vision ENT Denies vertigo, Denies dizziness, Denies headache(s) and Denies sore throat Card Denies chest pain, Denies leg edema and Denies lightheadedness Resp Denies cough, Denies hemoptysis and Denies wheezing GI Denies abdominal pain, Denies melena, Denies constipation, Denies diarrhea and Denies vomiting Denies dysuria, Denies urinary frequency and Denies urinary urgency Musc Denies arthralgias, Denies joint swelling, Reports muscle cramps (Anterior thighs intermittently), Denies numbness and Denies tingling Neuro Denies Abnormal speech present, Denies behavioral changes, Denies vertigo, Denies dizziness, Denies headache(s), Denies loss of vision, Denies memory loss, Denies numbness and Denies tingling Psych Denies anxiety, Denies behavioral changes, Denies depression, Denies memory loss and Denies panic attacks Jaylan/Lymph Denies easy bleeding and Denies easy bruising Aller/Immun Denies wheezing Physical exam (Primary Care) Vital Signs: Last Vital Signs Temp 97 F 08/21/24 14:27 Pulse 79 08/21/24 14:27 BP 130/64 08/21/24 14:27 Pulse Ox 99 08/21/24 14:27 Oxygen Delivery Method Room Air 08/21/24 14:27 BMI result Body Mass Index 20.3 Tobacco/Smoking Status: Tobacco use Status Tobacco use date assessed 03/24/24 08/21/24 14:22 Patient Tobacco Use Status Never used Tobacco 08/21/24 14:22 e-Cigarette/Vaping Use Never Used 08/21/24 14:22 PHQ-9: PHQ-9 Score PHQ-9: Total score 0 08/21/24 14:46 Depression Screening Interpretation: Negative Thrive Assessment: Date of Thrive Assessment Date Thrive assessed 08/21/24 08/21/24 14:31 Currently or been in a relationship where the following occur: I choose not to answer Const General: healthy appearing, no acute distress, alert and awake Nutritional Appearance: well nourished Orientation/consciousness: oriented to person, oriented to place and oriented to time HENMT Ears: TM's normal bilaterally General nose exam: Normal nasal mucous membranes and turbinates present Eyes Conjunctivae: conjunctivae normal Sclerae: sclerae normal Pupils: Equal, round and reactive pupils present Neck Neck: Yes no lymphadenopathy and Yes no JVD Thyroid: Thyroid normal Carotids: no bruits Resp Effort & Inspection: normal respiratory effort and not tachypneic Auscultation: no crackles, no rales, no rhonchi and no wheezes Cardio Rate: regular rate Rhythm: regular rhythm Heart sounds: no murmurs and normal S1 and S2 GI Palpation (GI): Soft to palpation, nontender, no hepatomegaly and no splenomegaly Auscultation: normal bowel sounds Skin General skin exam: no rashes or lesions noted and dry skin Neuro General: oriented to person, oriented to place and oriented to time Cranial nerves: Yes Equal, round and reactive pupils present Speech: No Abnormal speech present Gait exam (Neuro): Normal gait present Motor exam (neuro): no tremor noted Extrem Right upper extremity: full ROM Left upper extremity: full ROM Right lower extremity: full ROM; no edema Left lower extremity: full ROM; no edema Psych Mental Status: mental status grossly normal Speech and movement: Normal speech and movement present Affect: normal affect Attitude: cooperative Thought process: Normal thought process present Coding Level of Care Code Est Pt Level 3 (89163) Diagnoses Type 2 diabetes mellitus with diabetic polyneuropathy, without long-term current use of insulin E11.42 Diabetes mellitus fci insulin use: without watermelon inspector use Pure hypercholesterolemia E78.00 Hyperlipidemia type: pure hypercholesterolemia Encounter for colorectal cancer screening Z12.11; Z12.12 Diabetic retinopathy of left eye associated with type 2 diabetes mellitus, macular edema presence unspecified, unspecified retinopathy severity E11.319 Diabetes mellitus type: type 2 Diabetic retinopathy severity: with unspecified retinopathy severity Laterality: left Diabetes mellitus macular edema: macular edema presence unspecified Additional Codes ELVIA-7 Assessment Billing - ELVIA-7 Assessment Tool: ELVIA-7 Assessment 33585 ([id number]) PHQ-9 - 65781 - PHQ-9 Billing: Yes ([id number]) Time Spent (min) 33 Assessment & Plan Assessment & Plan (1) Type 2 diabetes mellitus with diabetic polyneuropathy: Code(s): E11.42 - Type 2 diabetes mellitus with diabetic polyneuropathy Category: Medical Qualifiers: Diabetes mellitus watermelon inspector insulin use: without watermelon inspector use Qualified Code(s): E11.42 - Type 2 diabetes mellitus with diabetic polyneuropathy Plan: Last A1c 6.8% 04/03/2024. Reinforced low sugar/carbohydrate diet and activity as tolerated Continue metformin a 1000 mg b.i.d., glipizide 2.5 mg daily, and Jardiance 10 mg daily Follow up with Endocrinology as scheduled (2) Hyperlipidemia: Code(s): E78.5 - Hyperlipidemia, unspecified Category: Medical Qualifiers: Hyperlipidemia type: pure hypercholesterolemia Qualified Code(s): E78.00 - Pure hypercholesterolemia, unspecified Plan: LDL 106 on HDL 36 on 04/03/2024 Reinforced low-cholesterol diet and activity as tolerated Inconsistently takes rosuvastatin 40 mg at bedtime due to muscle aches Encourage magnesium 400 mg at bedtime to decrease muscle ache (3) Encounter for colorectal cancer screening: Code(s): Z12.11 - Encounter for screening for malignant neoplasm of colon; Z12.12 - Encounter for screening for malignant neoplasm of rectum Category: Medical Plan: Has never had a colonoscopy; reports feeling embarrassed to get this done Cologuard ordered (4) Diabetic retinopathy: Code(s): E11.319 - Type 2 diabetes mellitus with unspecified diabetic retinopathy without macular edema Category: Medical Qualifiers: Diabetes mellitus type: type 2 Diabetic retinopathy severity: with unspecified retinopathy severity Laterality: left Diabetes mellitus macular edema: macular edema presence unspecified Qualified Code(s): E11.319 - Type 2 diabetes mellitus with unspecified diabetic retinopathy without macular edema Plan: Reports Legal Support Assistant in [place]; he take shots every 5 weeks in left eye. He is going end of the month Orders: Orders Complete Blood Count Auto Diff 08/21/24 E11.42 - Type 2 diabetes mellitus with diabetic polyneuropathy, E78.00 - Pure hypercholesterolemia, unspecified, Z00.00 - Encounter for general adult medical examination without abnormal findings Comprehensive [place]. Panel Fast 08/21/24 E11.42 - Type 2 diabetes mellitus with diabetic polyneuropathy, E78.00 - Pure hypercholesterolemia, unspecified, Z00.00 - Encounter for general adult medical examination without abnormal findings TSH reflex Free T4 08/21/24 E11.42 - Type 2 diabetes mellitus with diabetic polyneuropathy, E78.00 - Pure hypercholesterolemia, unspecified, Z00.00 - Encounter for general adult medical examination without abnormal findings PSA,Total (Free>4and<10) 08/21/24 E11.42 - Type 2 diabetes mellitus with diabetic polyneuropathy, E78.00 - Pure hypercholesterolemia, unspecified, Z00.00 - Encounter for general adult medical examination without abnormal findings UA CC w/rflx Micro + Cult 08/21/24 E11.42 - Type 2 diabetes mellitus with diabetic polyneuropathy, E78.00 - Pure hypercholesterolemia, unspecified, Z00.00 - Encounter for general adult medical examination without abnormal findings Vitamin D 25-OH Total 08/21/24 E11.42 - Type 2 diabetes mellitus with diabetic polyneuropathy, E78.00 - Pure hypercholesterolemia, unspecified, Z00.00 - Encounter for general adult medical examination without abnormal findings Hemoglobin A1c 08/21/24 E11.42 - Type 2 diabetes mellitus with diabetic polyneuropathy, E78.00 - Pure hypercholesterolemia, unspecified, Z00.00 - Encounter for general adult medical examination without abnormal findings Referrals Cologuard Test Z12.11 - Encounter for screening for malignant neoplasm of colon, Z12.12 - Encounter for screening for malignant neoplasm of rectum
[2024-08-21 14:27] VITALS: BP 130/64; PULSE 79; TEMP 36.1; O2SAT 99; BMI 20.3
--- OUTSIDE RECORDS SUMMARY | 2024-08-21 14:28 | XMS_ITS | Clinical Summary ---
Author Organization [employer] Address [address] [facility] [address] [place] [address] Care Team Providers Care Insurance Consultant Name Role Phone Unavailable Primary Care Provider Unavailabl e Encounters Date Type Department Care Team Description 06/27/2024 3:00 PM EDT Immunization [facility] [address] [place] [address] Encounter for immunization from Last 3 Months Immunizations Immunization Administration Dates Next Due Influenza, seasonal, injectable, preservative fr ee 12/30/2023 Pfizer Covid-19 Vaccine 12+ 06/27/2024, Social History Tobacco Use Types Packs/Day Years Used Date Smoking Tobacco: Never Assessed Sex and Gender Information Value Date Recorded Sex Assigned at Male 06/17/2023 2:30 PM EDT Legal Sex Male 1:34 PM EDT Gender Identity Male 06/17/2023 2:30 PM EDT Sexual Orientation Straight 06/17/2023 2: 30 PM EDT Plan of Treatment Health Maintenance Due Date Last Done Comments CT Colonography 1952 Colonoscopy 1952 Colorectal Cancer Screening 1952 Depression Screening 1952 FIT DNA/Cologuard 1952 FIT 1952 FOBT 1952 Lipid Panel 1952 SDOH Screening 1952 Sigmoidoscopy 1952 Alcohol/Substance Use Screening 1964 Tobacco Screening 1964 Hepatitis C Screening 1970 DTaP/Tdap/Td Vaccines (1 - Tdap) 09/21/1971 Pneumococcal Vaccine: 50+ Years (1 of 1 - PCV) 2002 Zoster Vaccines (1 of 2) 2002 COVID-19 Vaccine (3 - 2023-2 5 season) 2024 06/27/2024, 06/17/2023 RSV Patients and Patients Aged 60 years or older (1 - 1-dose 75+ series) 09/21/2027 Influenza Vaccine Completed 12/30/2023 HIB Vaccines Aged Out No longer eligi ble based on patient's age to complete this topic HPV Vaccines Aged Out No longer eligi ble based on patient's age to complete this topic Hepatitis A Vaccines Aged Out No long er eligible based on patient's age to complete this topic Hepatitis B Vaccines Aged Out No long er eligible based on patient's age to complete this topic IPV Vaccines Aged Out No longer eligi ble based on patient's age to complete this topic Meningococcal B Vaccine Aged Out No l onger eligible based on patient's age to complete this topic Meningococcal Vaccine Aged Out No sergey luciana eligible based on patient's age to complete this topic RSV under 20 months Aged Out No longe r eligible based on patient's age to complete this topic Rotavirus Vaccines Aged Out No longer eligible based on patient's age to complete this topic Insurance [employer] [place] [employer] PPO [facility] ONE CARE < 65
--- OUTSIDE RECORDS SUMMARY | 2024-08-21 14:28 | XMS_ITS | Continuity of Care Document ---
Author Organization [facility] [address] [place] [address] Phone [phone] Care Team Providers Care Pellet Mill Operator Name Role Phone Norm Gallego Care Team Information Link Fabric Machine Operator + [phone] Problems Active Problems Provider Date Type 2 diabetes mellitus Eugenio Hammer M.D. Onset: 02/17/2022 Hyperlipidemia Eugenio Hammer M.D. Onset: 04/19/2021 Social History Type Date Description Comments Sex Unknown Tobacco Use Start: Unknown Never Smoked Cigarettes ETOH Use Occasionally consumes alcoho l Allergies and adverse reactions Description No Known Drug Allergies Medications Active Medications SIG Qnty Indications Ordering Provider Date [id number] Tablets Take 1 Tablet By Mouth Daily 90tabs Eugenio Hammer M.D. 03/14/2024 Metformin [id number] Tablets Take 1 Tablet By Mouth Twice Daily 180tabs Eugenio Hammer M.D. 03/14/2024 [id number] Tablets 1 tab by mouth every evening 90tabs Eugenio Hammer M.D. 02/24/2022 [id number] Tablets Take 1 Tablet By Mouth Every Day 90tabs Eugenio Hammer M.D. 02/24/2022 Onetouch VerioStrips as Directed To Test Blood Sugar Twice Daily Norm Gallego [id number] Tablets Take 1 Tablet By Mouth Every Morning 90tabs Eugenio Hammer M.D. Vital Signs Date Vital Result Comment 03/14/2024 1:08pm BP Systolic 120 mmHg BP Diastolic 60 mmHg Heart Rate 72 /min Height 64 inches 5'4 Weight 112.38 lb BMI (Body Mass Index) 19.3 kg/m2 Results Test Acquired Date Facility Test Result H/L Range N ote Hemoglobin A1c 03/14/2024 Inhouse Hemoglobin A1c 7.3% Glucose Fingerstick 03/14/2024 Inhouse Glucose Fingerstick 123 Glucose Fingerstick 11/02/2023 Inhouse Glucose Fingerstick 102 Hemoglobin A1c 11/02/2023 Inhouse Hemoglobin A1c 6.9% Glucose Fingerstick 07/02/2023 Inhouse Glucose Fingerstick 130 Hemoglobin A1c 07/02/2023 Inhouse Hemoglobin A1c 7.0% Glucose Fingerstick 03/26/2023 Inhouse Glucose Fingerstick 119 Hemoglobin A1c 03/26/2023 Inhouse Hemoglobin A1c 6.9% Glucose Fingerstick 11/20/2022 Inhouse Glucose Fingerstick 131 Hemoglobin A1c 11/20/2022 Inhouse Hemoglobin A1c 6.5% Hemoglobin A1c 08/19/2022 Inhouse Hemoglobin A1c 6.6% Glucose Fingerstick 08/19/2022 Inhouse Glucose Fingerstick 137 Glucose Fingerstick 05/20/2022 Inhouse Glucose Fingerstick 207 Hemoglobin A1c 05/20/2022 Inhouse Hemoglobin A1c 6.8% TSH With Reflex To FT4 02/17/2022 [facility] TSH With Reflex To FT4 <pending> Hemoglobin A1c 02/17/2022 Inhouse Hemoglobin A1c 7.5% Glucose Fingerstick 02/17/2022 Inhouse Glucose Fingerstick 165 Medical Devices Description No Information Available Encounters Type Date Location Provider Dx Diagnosis Office Visit 03/14/2024 1:00p Main Office Eugenio Hammer M.D. E11.9 Type 2 diabetes mellitus without complications Assessments Date Code Description Provider 03/14/2024 E11.9 Type 2 diabetes mellitus without complications Eugenio Hammer M.D. Plan of Treatment Future Appointment(s):* 10/23/2024 10:15 am - Eugenio Hammer M.D. at Main [...]
== END 2024-08-21 15:14 | disposition home or self-care (01) ==
LOC: HO.HMCH 14:17
DX: E11.42 Type 2 diabetes mellitus with diabetic polyneuropathy (principal); E11.319 Type 2 diabetes mellitus with unspecified diabetic retinopathy without macular edema; E78.00 Pure hypercholesterolemia, unspecified; Z12.11 Encounter for screening for malignant neoplasm of colon; Z12.12 Encounter for screening for malignant neoplasm of rectum

== ENCOUNTER → 2024-08-21 14:17 | Outpatient (BNVA) | payer BC, SELFPAY | DX: Z76.89 Persons encountering health services in other specified circumstances (principal); E11.42 Type 2 diabetes mellitus with diabetic polyneuropathy; E78.00 Pure hypercholesterolemia, unspecified; E11.319 Type 2 diabetes mellitus with unspecified diabetic retinopathy without macular edema; Z79.84 Long term (current) use of oral hypoglycemic drugs | CPT/HCPCS: 96127 ==

== ENCOUNTER 2024-09-16 07:05 | Outpatient (REF) | payer MEDICARE, OTHER, SELFPAY ==
[2024-09-16 07:40] LABS: Basophils Absolute Auto 0.1 X10*3/uL (0.0-0.2); Basophils Percent Auto 0.6 % (0-2); Eosinophils Absolute Auto 0.3 X10*3/uL (0.0-0.4); Hematocrit 43.5 % (42.0-52.0); Hemoglobin 13.7 g/dl (14.0-18.0); Imm Gran Abs Auto 0.02 X10*3/uL (0.00-0.03); Imm Gran Pct Auto 0.2 % (0.0-0.4); Lymphocytes Absolute Auto 2.1 X10*3/uL (1.2-4.9); Lymphocytes Percent Auto 25.1 % (20-40); MANUAL DIFF FLAG SCAN; Mean Corpuscular HGB Conc 31.5 g/dl (31.0-36.0); Mean Corpuscular Hemoglobin 26.9 pg (27.0-33.0); Mean Corpuscular Volume 85.3 fL (80.0-98.0); Monocytes Percent Auto 11.8 % (2-11); Neutrophils Absolute Auto 4.9 x10*3/uL (2.0-8.3); Neutrophils Percent Auto 59.3 % (45-73); PLT CLUMP 1; Red Cell Distribution Width 13.8 % (11.0-16.0); SCAN SMEAR FLAG 1
[2024-09-16 07:42] LABS: Appearance Urine Clear; Color Urine Yellow; Glucose Urine UA >=1000 mg/dL (Negative); Leukocyte Esterase Urine Moderate (2+) (Negative); Nitrite Urine Negative (Negative); Specific Gravity - Urine >= 1.030 (1.005-1.025); UMIC TRIGGER UACC YES; Urine Blood Negative (Negative); Urine Ketones Negative (Negative); Urine Protein Negative (Neg-Trace)
[2024-09-16 07:51] LABS: Bacteria Urine None Seen (None Seen); Hyaline Casts Urine 0-2 /LPF (0-2); RBC Urine 0-2 /HPF (0-2); UACC Culture Trigger YES; WBC Urine 21-50 /HPF (0-5)
[2024-09-16 08:06] LABS: Alanine Aminotransferase 21 U/L (0-40); Albumin Level 4.7 g/dL (3.5-5.0); Alkaline Phosphatase 56 U/L (39-117); Anion Gap 13 (12-20); Aspartate Amino Transferase 18 U/L (5-37); Bilirubin Total 0.4 mg/dL (0.0-1.0); Blood Urea Nitrogen 27 mg/dL (9-16); Calcium 10.3 mg/dL (8.4-10.2); Carbon Dioxide 26 mmol/L (22-29); Chloride 105 mmol/L (96-108); Estimated Glomerular Filt Rate > 60; Glucose Fasting 169 mg/dL (60-99); Potassium 4.3 mmol/L (3.3-5.1); Sodium 140 mmol/L (135-145); Total Protein 7.5 g/dL (6.5-8.0)
[2024-09-16 08:15] LABS: PSA,Total (Free>4and<10) 1.25 ng/mL (0.00-4.00)
[2024-09-16 08:32] LABS: Platelet Count 233 X10*3/uL (160-400); White Blood Count 8.3 X10*3/uL (4.8-10.8)
[2024-09-16 08:32] LABS: TSH reflex Free T4 2.16 uIU/mL (0.32-4.0); Vitamin D 25-OH Total 43.7 ng/mL (>30)
[2024-09-16 08:33] LABS: SLIDE REVIEW VERIFIED
== END 2024-09-16 07:06 | disposition home or self-care (01) ==
LOC: HO.LAB 07:05
PROVIDERS: Referring Provider Internal Medicine Endocrinology, Diabetes & Metabolism
DX: E11.42 Type 2 diabetes mellitus with diabetic polyneuropathy (principal); E78.00 Pure hypercholesterolemia, unspecified; R82.90 Unspecified abnormal findings in urine; Z12.5 Encounter for screening for malignant neoplasm of prostate; Z00.00 Encounter for general adult medical examination without abnormal findings
CPT/HCPCS: 36415; 80053; 81001; 82306; 84153; 84443; 85025; 87086; 87088; 87186